=== PATIENT | female | born 1940 | race Caucasian/White ===

== ENCOUNTER 2018-04-19 16:06 | Emergency (ER) | payer MEDICARE, OTHER | END 2018-04-20 06:56 | disposition home or self-care (01) | LOC: E/R 04-20 06:56 | DX: S00.83XA Contusion of other part of head, initial encounter (principal); W01.198A Fall on same level from slipping, tripping and stumbling with subsequent striking against other object, initial encounter; Y92.9 Unspecified place or not applicable | CPT/HCPCS: 70450; 72125; 99284-25 ==